=== PATIENT | female | born 1990 | race Caucasian/White ===

== ENCOUNTER 2018-10-30 12:22 | Emergency (ER) | payer OTHER ==
[~2018-10-30] VITALS: Ht 165.1 cm; Wt 60.8 kg
[2018-10-30 12:22] VITALS: BP 124/70
[2018-10-30] MEDS ORDERED: HYDROcodone/APAP 5/325MG 1 TAB TABLET PO ONE (13:00)
[2018-10-30] MEDS ORDERED: CEPH-264 PO (13:03)
[2018-10-30] MEDS ORDERED: HYDR-3165 PO (13:03)
--- NOTE | 2018-10-30 13:03 | PHYS DOC ---
Adult General Chief Complaint Chief Complaint: THUMB HPI HPI 28-year-old female presents with left thumb laceration. The patient was trying to pry apart 2 pieces of meat with a knife when it slipped and it cut down through the finger nail into her thumb on the left hand. The patient had immediate bleeding and pain. The bleeding has stopped. 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 Her tetanus is not up-to-date. She denies any other injuries or complaints. Review of Systems Review of Systems Constitutional: Denies fever or chills [] Eyes: Denies change in visual acuity, redness, or eye pain [] HENT: Denies nasal congestion or sore throat [] Respiratory: Denies cough or shortness of breath [] Cardiovascular: No additional information not addressed in HPI [] GI: Denies abdominal pain, nausea, vomiting, bloody stools or diarrhea [] : Denies dysuria or hematuria [] Musculoskeletal: Denies back pain or joint pain [] Integument: Laceration left thumb[] Neurologic: Denies headache, focal weakness or sensory changes [] Endocrine: Denies polyuria or polydipsia [] All other systems were reviewed and found to be within normal limits, except as documented in this note. Current Medications Current Medications Current Medications Medications (Trade) Dose Ordered Sig/Henri Start Time Stop Time Status Last Admin Dose Admin Acetaminophen/ Hydrocodone Bitart (Lortab 5/325) 1 tab 1X ONCE 10/30/18 13:00 10/30/18 13:01 UNV Physical Exam Physical Exam Constitutional: Well developed, well nourished, no acute distress, non-toxic appearance. [] HENT: Normocephalic, atraumatic, bilateral external ears normal, oropharynx moist, no oral exudates, nose normal. [] Eyes: PERRLA, EOMI, conjunctiva normal, no discharge. [] Neck: Normal range of motion, no tenderness, supple, no stridor. [] Cardiovascular:Heart rate regular rhythm, no murmur [] Lungs & Thorax: Bilateral breath sounds clear to auscultation [] Abdomen: Bowel sounds normal, soft, no tenderness, no masses, no pulsatile masses. [] Skin: The 2.5 cm laceration through the fingernail of the left thumb. Bleading controlled, Skin margins well approximated.[] Back: No tenderness, no CVA tenderness. [] Extremities: No tenderness, no cyanosis, no clubbing, ROM intact, no edema. [] Neurologic: Alert and oriented X 3, normal motor function, normal sensory function, no focal deficits noted. [] Psychologic: Affect normal, judgement normal, mood normal. [] EKG EKG [] Radiology/Procedures Radiology/Procedures [] Course & Med Decision Making Course & Med Decision Making Pertinent Labs and Imaging studies reviewed. (See chart for details) Given the way this laceration looks, I do not believe a repair of this laceration is necessary. The skin margins are well approximated. The hematoma forms, there is already inability for drainage through the nail. Except for the laceration, there is no other injury to the nail. I will give her a Alpine 5/325 in the ED as well as a tetanus shot. I will discharge her with 10 Alpine 5/325 for home. Given the difficulty for quality irrigation, I will also put her on prophylactic Keflex. [] Dragon Disclaimer Dragon Disclaimer This electronic medical record was generated, in whole or in part, using a voice recognition dictation system. Departure Departure: Impression: Primary Impression: Laceration of left thumb with damage to nail Disposition: HOME, SELF-CARE Condition: STABLE Referrals: MIL WHITTEN MD (PCP) Patient Instructions: Fingertip Laceration, Nail Bed Injury, [id number]-Biry Scripts Cephalexin (KEFLEX) 500 Mg Capsule 1 CAP PO BID for infection, #14 CAP Prov: SANYA COLON DO 10/30/18 Hydrocodone Bit/Acetaminophen (NORCO 5-325 TABLET) 1 Each Tablet 1 TAB PO PRN Q6HRS PRN for PAIN, #10 TAB 0 Refills Prov: SANYA COLON DO 10/30/18 Problem Qualifiers Primary Impression: Laceration of left thumb with damage to nail Encounter type: initial encounter Foreign body presence: without foreign body Qualified Codes: S61.112A - Laceration without foreign body of left thumb with damage to nail, initial encounter SANYA COLON DO Oct 30, 2018 13:03
[2018-10-30] MEDS ORDERED: DIPHTH,PERTUSS(ACELL),TET TOX 0.5 ML DISP.SYRIN. VAX IM ONE (13:15)
== END 2018-10-30 13:19 | disposition home or self-care (01) ==
LOC: ER 12:22
DX: S61.012A Laceration without foreign body of left thumb without damage to nail, initial encounter (principal); W26.0XXA Contact with knife, initial encounter; Y93.89 Activity, other specified; Y92.89 Other specified places as the place of occurrence of the external cause; Y99.8 Other external cause status
CPT/HCPCS: 90471; 90715; 99283

== ENCOUNTER → 2019-04-06 | Outpatient (CLI) | payer OTHER ==
[~2019-04-06] MED LIST: CEPH-264 PO; HYDR-3165 PO
--- NOTE | 2019-04-06 10:12 | RAD ---
EXAM: Pelvic sonogram. HISTORY: Pelvic pain. TECHNIQUE: Transabdominal and transvaginal sonographic imaging of the pelvis was performed. COMPARISON: None. FINDINGS: The uterus measures 8.5 x 5.5 x 3.9 cm. The endometrial stripe measures 3.7 mm. There is a small amount of fluid within the endocervical canal. The ovaries are normal in size and demonstrate normal blood flow. There is a 1.8 cm suspected complex left ovarian cyst, possibly hemorrhagic in etiology. There are small bilateral ovarian follicles. There is a small amount of simple free fluid within the right adnexa. IMPRESSION: 1. 1.8 cm complex left ovarian cyst, possibly hemorrhagic in etiology. 2. Small amount of nonspecific fluid within the endocervical canal. 3. Small amount of right adnexal free fluid. 4. Note is made that the previously described mass along the posterior aspect of the uterus on the sonogram dated 08/09/[address] dated 08/12/2018 demonstrates no correlate on the current exam. This may be due to differences in technique. Electronically signed by: Catalina Finney MD (04/06/2019 10:09 AM) [facility]
== END | disposition home or self-care (01) ==
LOC: US 08:59
PROVIDERS: ATTEND Physician Assistant Medical
DX: N83.292 Other ovarian cyst, left side (principal)
CPT/HCPCS: 76830; 76856

== ENCOUNTER → 2019-08-09 | Outpatient (CLI) | payer BC ==
[2019-08-09 16:51] LABS: BASO % 0 % (0-3); EOS % 0 % (0-3); HEMATOCRIT 42.1 % (36.0-47.0); HEMOGLOBIN 14.2 g/dL (12.0-15.5); LYMPH # 2.4 x10^3/uL (1.0-4.8); LYMPH % 21 % (24-48); MEAN CORPUSCULAR HEMOGLOBIN 33 pg (25-35); MEAN CORPUSCULAR HGB CONC 34 g/dL (31-37); MEAN CORPUSCULAR VOLUME 96 fL (79-100); MONO # 0.7 x10^3/uL (0.0-1.1); MONO % 6 % (0-9); NEUT # 8.2 x10^3uL (1.8-7.7); NEUT % 72 % (31-73); PLATELET COUNT 330 x10^3/uL (140-400); RED BLOOD COUNT 4.36 x10^6/uL (3.50-5.40); RED CELL DISTRIBUTION WIDTH 12.6 % (11.5-14.5); WHITE BLOOD COUNT 11.3 x10^3/uL (4.0-11.0)
[2019-08-10 18:07] LABS: RUBELLA IGG ANTIBODY 4.01 index (Immune >0.99)
== END | disposition home or self-care (01) ==
LOC: LAB 15:05
PROVIDERS: ATTEND Obstetrics & Gynecology
DX: Z33.1 Pregnant state, incidental (principal)
CPT/HCPCS: 36415; 84443; 84702; 85025; 86592; 86703; 86762; 86787; 86803; 86850; 86900; 86901; 87340

== ENCOUNTER → 2019-08-18 | Outpatient (CLI) | payer BC ==
--- NOTE | 2019-08-18 11:18 | RAD ---
EXAM: Obstetrics sonogram. HISTORY: Uncertain dates. TECHNIQUE: Sonographic imaging of the gravid uterus was performed. COMPARISON: None. FINDINGS: The uterus measures 7.4 x 5.9 x 5.7 cm. There is a single intrauterine gestational sac with yolk sac and pole. The crown-rump length is 4 mm, corresponding with a gestational age of 6 weeks and 0 days. There is cardiac activity with a heart rate of 101 bpm. The right ovary is not seen. The left ovary is normal in size and contains a 2.0 cm involuting cyst and 1.9 cm simple cyst. There is normal blood flow within the left ovary. IMPRESSION: 1. Single intrauterine fetus with an estimated gestational age based on crown-rump length measurement of 6 weeks and 0 days and early cardiac activity. 2. 2.0 cm involuting left ovarian cyst and 1.9 cm simple left ovarian cyst. 3. Obscured right ovary. Electronically signed by: Catalina Finney MD (08/18/2019 11:15 AM) [facility] [place]
== END | disposition home or self-care (01) ==
LOC: US 10:30
PROVIDERS: ATTEND Obstetrics & Gynecology
DX: Z34.01 Encounter for supervision of normal first pregnancy, first trimester (principal); N83.292 Other ovarian cyst, left side; Z3A.01 Less than 8 weeks gestation of pregnancy
CPT/HCPCS: 76801

== ENCOUNTER → 2019-11-09 | Outpatient (CLI) | payer BC ==
--- NOTE | 2019-11-09 12:17 | RAD ---
INDICATION: Right leg swelling COMPARISON: None. TECHNIQUE: Grayscale, color and doppler ultrasound images were obtained of the right lower extremity venous vasculature. RIGHT: No thrombus identified in the common femoral vein, femoral vein, popliteal vein or visualized calf veins. IMPRESSION: * No thrombus identified in deep venous system of right lower extremity. Electronically signed by: Dash Hernandez MD (11/09/2019 12:14 PM) [id number]
== END ==
LOC: US 11:46
PROVIDERS: ATTEND Obstetrics & Gynecology
DX: M79.89 Other specified soft tissue disorders (principal); R60.9 Edema, unspecified
CPT/HCPCS: 93971

== ENCOUNTER → 2019-11-30 | Outpatient (CLI) | payer OTHER ==
--- NOTE | 2019-11-30 08:59 | RAD ---
Study: US PREG MORE THAN OR EQ TO 14 WKS Clinical Indication: Second trimester survey. Comparison: 08/18/2019 Technique: Multiple grayscale images, color Doppler, and M-mode images of the uterus are obtained. Findings: Single intrauterine gestation in breech presentation. The placenta is posterior in location without evidence of placenta previa. The amount of amniotic fluid appears appropriate. Amniotic fluid index is 15.1 cm. Cervical length is 3 cm. Biometrical data: BPD = 5.0 cm for 21 weeks 0 days. HC = 18.4 cm for 20 weeks 6 days. AC = 16.8 cm for 21 weeks 6 days. FL = 3.3 cm for 20 weeks 3 days. CI ratio = 81.1. HC/AC ratio = 1.10. FL/HC ratio = 18.1. FL/AC ratio = 19.9. Overall, the estimated sonographic gestational age is 21 weeks 0 days for an estimated date of delivery of 03/15/2020. The estimated date of delivery provided by the last menstrual period is 04/12/2020. Estimated weight is 403 grams. A 4 chamber heart is identified with positive cardiac activity. heart rate is 143 beats per minute. Bilateral upper and lower extremities are identified. There is a three-vessel cord with cord insertion visualized. stomach and urinary bladder are identified. Both kidneys are seen. The brain is unremarkable. The spine was difficult to evaluate due to positioning. No gross anatomic abnormalities are identified. Female gender. Impression: 1. Single live intrauterine gestation with estimated sonographic gestational age of 21 weeks 0 days corresponding to an estimated delivery date of 04/11/2020. Estimated delivery date by last menstrual period of04/12/2020. weight estimate of 403 g. 2. Breech presentation at this time. Posterior placenta without previa. Within normal limits amniotic fluid index.] Cervix measuring 3 cm. 3. No anatomic abnormality is identified noting hindered evaluation of the spinal column due to position. Electronically signed by: ABRAM EMERY MD (11/30/2019 8:56 AM) [id number]
== END ==
LOC: US 07:50
PROVIDERS: ATTEND Obstetrics & Gynecology
DX: O32.1XX0 Maternal care for breech presentation, not applicable or unspecified (principal); Z3A.21 21 weeks gestation of pregnancy
CPT/HCPCS: 76805

== ENCOUNTER → 2020-01-13 | Outpatient (CLI) | payer OTHER | LOC: LAB 07:40 | PROVIDERS: ATTEND Obstetrics & Gynecology | DX: Z34.92 Encounter for supervision of normal pregnancy, unspecified, second trimester (principal); Z3A.00 Weeks of gestation of pregnancy not specified | CPT/HCPCS: 36415; 82950 ==

== ENCOUNTER → 2020-02-24 | Outpatient (CLI) | payer OTHER ==
--- NOTE | 2020-02-25 08:02 | RAD ---
Obstetric ultrasound limited: Reason for examination: Size of fetus inconsistent with dates in third trimester. Comparison is made to previous study dated 11/30/2019. Cervix length is normal at 3.8 cm. Fetus appears to be in cephalic presentation. Cardiac activity is seen in the 4 chamber heart with cardiac rate of 139 bpm. Stomach, kidneys and bladder are visualized. There is a three-vessel umbilical cord. The placenta is posterior fundal in location with no previa or abruption adequate amniotic fluid appears be present with the amniotic fluid index of 12.7 cm. Biparietal diameter is 8.27 cm corresponding to gestational age of 33 weeks 2 days. Head circumference is 28.74 corresponding to gestational age of 31 weeks 4 days. Abdominal circumference is 29.16 cm corresponding to gestational age of 31 weeks 1 days. Femur length is 6.39 centimeters corresponding to gestational age of 33 weeks 0 days. Estimated weight is 2091 g. Cephalic index is 88.6. Head circumference to abdominal circumference ratio is 0.99. Femur length to biparietal diameter ratio 77.4. Femur length to head circumference ratio is 22.3. Femur length to abdominal circumference ratio is 21.9. Mean gestational age by ultrasound is 33 weeks 5 days with estimated date of confinement of 04/15/2020. Age by clinical dates is 33 weeks 1 day with estimated date of confinement of 04/12/2020. This corresponds adequately. IMPRESSION: Single viable intrauterine gestation with mean gestational age estimated at 33 weeks 5 days with an estimated date of confinement of 04/15/2020. No gross abnormality seen. Electronically signed by: Paula Mena MD (02/25/2020 7:59 AM) [id number]
== END | disposition home or self-care (01) ==
LOC: US 10:41
PROVIDERS: ATTEND Obstetrics & Gynecology
DX: O26.843 Uterine size-date discrepancy, third trimester (principal); Z3A.33 33 weeks gestation of pregnancy
CPT/HCPCS: 76815

== ENCOUNTER → 2020-07-24 | Outpatient (CLI) | payer OTHER | LOC: LAB 11:19 | PROVIDERS: ATTEND Internal Medicine Cardiovascular Disease | DX: R05 Cough (principal); R19.7 Diarrhea, unspecified; R09.81 Nasal congestion; J02.9 Acute pharyngitis, unspecified; R68.89 Other general symptoms and signs; Z20.828 Contact with and (suspected) exposure to other viral communicable diseases | CPT/HCPCS: U0003 ==

== ENCOUNTER → 2021-09-11 | Outpatient (CLI) | payer OTHER ==
[2021-09-11 08:17] LABS: BASO % 1 % (0-3); EOS # 0.1 x10^3/uL (0.0-0.7); EOS % 1 % (0-3); HEMATOCRIT 42.7 % (36.0-47.0); HEMOGLOBIN 14.5 g/dL (12.0-15.5); LYMPH % 25 % (24-48); MEAN CORPUSCULAR HEMOGLOBIN 33 pg (25-35); MEAN CORPUSCULAR HGB CONC 34 g/dL (31-37); MEAN CORPUSCULAR VOLUME 97 fL (79-100); MONO # 0.6 x10^3/uL (0.0-1.1); MONO % 7 % (0-9); NEUT # 5.1 x10^3uL (1.8-7.7); NEUT % 66 % (31-73); PLATELET COUNT 263 x10^3/uL (140-400); RED BLOOD COUNT 4.39 x10^6/uL (3.50-5.40); RED CELL DISTRIBUTION WIDTH 12.8 % (11.5-14.5); WHITE BLOOD COUNT 7.7 x10^3/uL (4.0-11.0)
[2021-09-11 08:26] LABS: BACTERIA,URINE FEW /HPF (0-FEW); CLARITY,URINE HAZY; COLOR,URINE YELLOW; GLUCOSE,URINE NEG (NEG); NITRITE,URINE NEG (NEG); RBC,URINE OCC /HPF (0-2); SQUAMOUS EPITHELIAL CELL,UR MANY /LPF; UROBILINOGEN,URINE 0.2 mg/dL (0.2 mg/dL); WBC,URINE OCC /HPF (0-4)
[2021-09-11 08:27] LABS: ALBUMIN 3.9 g/dL (3.4-5.0); ALBUMIN/GLOBULIN RATIO 1.3 (1.0-1.7); CALCIUM 8.8 mg/dL (8.5-10.1); CREATININE 0.6 mg/dL (0.6-1.0); GFR 117.4; POTASSIUM 4.1 mmol/L (3.5-5.1); TOTAL BILIRUBIN 0.4 mg/dL (0.2-1.0)
--- NOTE | 2021-09-11 10:56 | RAD ---
CT ABDOMEN+PELVIS WO History: Right lower quadrant pain for 3-4 days. Comparison: None. Technique: CT of the abdomen and pelvis without contrast. Findings: The lung bases are clear. The liver, gallbladder, pancreas, spleen, adrenal glands, and kidneys are u nremarkable. The stomach and small bowel are within normal limits. Normal appendix. No colonic wall thickening or pericolonic inflammatory changes. The bladder is decompressed retroflexed uterus without significant abnormality. No adnexal masses. No free intraperitoneal air or fluid. No adenopathy. Vasculature is within normal limits. Soft tissues are unremarkable. There is mild degenerative changes at L5-S1 and unilateral right L5 pa rs interarticularis defect. Impression: 1. No acute findings in the abdomen and pelvis. Normal appendix. ------ Exposure: One or more of the following individualized dose reduction techniques were utilized for thi s examination: 1. Automated exposure control 2. Adjustment of the mA and/or kV according to patient size 3. Use of iterative reconstruction technique. Electronically signed by: Benito Lambert MD (09/11/2021 10:54 AM) [id number]
== END ==
LOC: CT 07:31
PROVIDERS: ATTEND Physician Assistant Medical
DX: R10.31 Right lower quadrant pain (principal); M47.817 Spondylosis without myelopathy or radiculopathy, lumbosacral region
CPT/HCPCS: 36415; 74176; 80053; 81001; 85025

== ENCOUNTER 2021-09-16 18:25 | Emergency (ER) | payer OTHER ==
[~2021-09-16] VITALS: Ht 160 cm; Wt 63.8 kg
--- NOTE | 2021-09-16 19:11 | PHYS DOC ---
Past History Past Medical History: No Pertinent History Past Surgical History: Other Additional Past Surgical Histo: R ACL RECONSTRUCTIONS; POLYPS FROM UTERIUS Alcohol Use: Occasionally Drug Use: None General Adult EDM: Chief Complaint: FLANK PAIN HPI: HPI: Patient is a 31-year-old female that presents today with right upper quadrant abdominal pain. Patient states for the last 10 days she has had increased abdominal pain on the right side, also nausea with loose stools as well, she states she saw her primary care physician last week and a CT scan was done on September 10, 2021 that did not show any acute findings at the time. Patient returns today because her pain has worsened and is now radiating to her right shoulder, she also is having severe nausea with no vomiting and heartburn. Review of Systems: Review of Systems: Constitutional: Denies fever or chills Eyes: Denies change in visual acuity HENT: Denies nasal congestion or sore throat Respiratory: Denies cough or shortness of breath Cardiovascular: Denies chest pain or edema GI: Abdominal pain nausea and heartburn and loose stools denies vomiting, bloody stools : Denies dysuria Musculoskeletal: Denies back pain or joint pain Integument: Denies rash Neurologic: Denies headache, focal weakness or sensory changes Endocrine: Denies polyuria or polydipsia Lymphatic: Denies swollen glands Psychiatric: Denies depression or anxiety Allergies: Allergies: Allergies Coded Allergies Type Severity Reaction Last Updated Verified amoxicillin Allergy Unknown 09/16/21 Yes Physical Exam: PE: Constitutional: Well developed, well nourished, mild distress, non-toxic appearance. [] HENT: Normocephalic, atraumatic, bilateral external ears normal, oropharynx moist, no oral exudates, nose normal. [] Eyes: PERRLA, EOMI, conjunctiva normal, no discharge. [] Neck: Normal range of motion, no tenderness, supple, no stridor. [] Cardiovascular:Heart rate regular rhythm, no murmur [] Lungs & Thorax: Bilateral breath sounds clear to auscultation [] Abdomen: Inspection of palpation of the abdomen shows no masses or no hernia noted, tenderness noted with palpation in the right upper quadrant, bowel sounds were hyperactive. [] Skin: Warm, dry, no erythema, no rash. [] Back: No tenderness, no CVA tenderness. [] Extremities: No tenderness, no cyanosis, no clubbing, ROM intact, no edema. [] Neurologic: Alert and oriented X 3, normal motor function, normal sensory function, no focal deficits noted. [] Psychologic: Affect normal, judgement normal, mood normal. [] Current Patient Data: Labs: Laboratory Tests Test 09/16/21 18:55 09/16/21 19:03 09/16/21 19:36 Urine Collection Type Void Urine Color Yellow Urine Clarity Clear Urine pH 6.5 Urine Specific [place] 1.010 Urine Protein Neg Urine Glucose (UA) Neg mg/dL Urine Ketones (Stick) Neg mg/dL Urine Blood Neg Urine Nitrite Neg Urine Bilirubin Neg Urine Urobilinogen Dipstick 0.2 mg/dL Urine Leukocyte Esterase Neg Urine RBC Occ /HPF Urine WBC Occ /HPF Urine Squamous Epithelial Cells Few /LPF Urine Bacteria Few /HPF Bedside Urine HCG, Qualitative hcg negative White Blood Count 10.8 x10^3/uL Red Blood Count 4.19 x10^6/uL Hemoglobin 13.9 g/dL Hematocrit 39.9 % Mean Corpuscular Volume 95 fL Mean Corpuscular Hemoglobin 33 pg Mean Corpuscular Hemoglobin Concent 35 g/dL Red Cell Distribution Width 12.2 % Platelet Count 257 x10^3/uL Neutrophils (%) (Auto) 74 % Lymphocytes (%) (Auto) 20 % Monocytes (%) (Auto) 6 % Eosinophils (%) (Auto) 0 % Basophils (%) (Auto) 0 % Neutrophils # (Auto) 8.0 x10^3uL Lymphocytes # (Auto) 2.2 x10^3/uL Monocytes # (Auto) 0.6 x10^3/uL Eosinophils # (Auto) 0.0 x10^3/uL Basophils # (Auto) 0.0 x10^3/uL Sodium Level 139 mmol/L Potassium Level 4.3 mmol/L Chloride Level 103 mmol/L Carbon Dioxide Level 27 mmol/L Anion Gap 9 Blood Urea Nitrogen 9 mg/dL Creatinine 0.7 mg/dL Estimated GFR (Cockcroft-Gault) 98.3 BUN/Creatinine Ratio 13 Glucose Level 94 mg/dL Calcium Level 9.0 mg/dL Total Bilirubin 0.4 mg/dL Aspartate Amino Transf (AST/SGOT) 14 U/L Alanine Aminotransferase (ALT/SGPT) 22 U/L Alkaline Phosphatase 38 U/L Total Protein 7.0 g/dL Albumin 4.1 g/dL Albumin/Globulin Ratio 1.4 Lipase 41 U/L Current Medications Medications (Trade) Dose Ordered Sig/Henri Route PRN Reason Start Time Stop Time Status Last Admin Dose Admin Sodium Chloride 1,000 ml @ 1,000 mls/hr 1X ONCE IV 09/16/21 19:15 09/16/21 20:14 DC 09/16/21 19:40 Fentanyl Citrate (Fentanyl 2ml Vial) 50 mcg 1X ONCE IVP 09/16/21 19:15 09/16/21 19:16 DC 09/16/21 19:41 Ondansetron HCl (Zofran) 4 mg 1X ONCE IVP 09/16/21 19:15 09/16/21 19:16 DC 09/16/21 19:41 Vital Signs Date Time Temp Pulse Resp B/P (MAP) Pulse Ox O2 Delivery O2 Flow Rate FiO2 09/16/21 20:30 72 18 131/83 (99) 100 Room Air 09/16/21 20:06 18 100 Room Air 09/16/21 20:00 72 18 126/85 (99) 99 Room Air 09/16/21 19:41 18 100 09/16/21 19:30 68 18 111/76 (88) 99 Room Air 09/16/21 18:35 98.1 83 18 138/86 (103) 99 Room Air Laboratory Tests Test 09/16/21 19:03 POC Urine HCG, Qualitative hcg negative (Negative) Vital Signs: Vital Signs Date Time Temp Pulse Resp B/P (MAP) Pulse Ox O2 Delivery O2 Flow Rate FiO2 09/16/21 18:35 98.1 83 18 138/86 (103) 99 Room Air EKG: EKG: [] Radiology/Procedures: Radiology/Procedures: REASON: RUQ abdominal pain PROCEDURE: ABDOMEN OR LWR BACK LTD INDICATION: Reason: RUQ abdominal pain / Spl. Instructions: / History: COMPARISON: CT September 11, 2021 TECHNIQUE: Grayscale and color ultrasound images obtained through the abdomen. FINDINGS: Pancreas: Limited visualization secondary to overlying structures obscuring Liver: Borderline echogenic. Gallbladder: No definite stones or wall thickening. Common Bile Duct: Not dilated. Right Kidney: No hydronephrosis. Aorta/IVC: Somewhat limited evaluation secondary to overlying structures obscuring. IMPRESSION: * No definite gallstones or common bile duct dilation. Electronically signed by: Dash Hernandez MD (09/16/2021 9:28 PM) [id number][] Heart Score: C/O Chest Pain: No Risk Factors: Risk Factors: DM, Current or recent (<one month) smoker, HTN, HLP, family history of CAD, obesity. Risk Scores: Score 0 - 3: 2.5% MACE over next 6 weeks - Discharge Home Score 4 - 6: 20.3% MACE over next 6 weeks - Admit for Clinical Observation Score 7 - 10: 72.7% MACE over next 6 weeks - Early Invasive Strategies Course & Med Decision Making: Course & Med Decision Making Pertinent Labs and Imaging studies reviewed. (See chart for details) [id number] Heaton regarding this case, he recommended a CT scan with p.o. and IV contrast due to the fact that the noncontrasted CT and ultrasound were negative for any acute findings and the patient continues to have right upper quadrant pain. Patient was informed of the decision to move forward with a contrasted CT, and she is agreeable with the plan of care. 1726 reviewed radiological and laboratory results with patient did inform her there is no acute findings on her results today, she will need to follow-up with her primary care physician for further evaluation of this abdominal pain with possible GI consult or other test. Patient will be given home doses of Zofran and Ultram while here in the emergency department will need to follow-up with her primary care for further medications at this time. Patient is agreeable with the plan of care. Dragon Disclaimer: Dragon Disclaimer: This electronic medical record was generated, in whole or in part, using a voice recognition dictation system. Departure Departure: Impression: Primary Impression: Abdominal pain Qualified Codes: R10.11 - Right upper quadrant pain Disposition: HOME / SELF CARE / HOMELESS Condition: STABLE Referrals: TI GEORGE (PCP) Patient Instructions: Abdominal Pain Additional Instructions: Ultram take 1 tablet every 6 hours as needed for moderate to severe pain [id number] Tylenol and/or ibuprofen as needed for mild to moderate pain Zofran take 1 tablet every 6-8 hours as needed for nausea, use with caution may cause constipation Follow-up with your primary care physician in the a.m. for further evaluation of your abdominal pain. DAYANA HILL APRN Sep 16, 2021 19:11
[2021-09-16] MEDS ORDERED: IV NORMAL SALINE 1,000ML 1,000 ML IV ONE (19:15)
[2021-09-16] MEDS ORDERED: ONDANSETRON PF 4 MG/2 ML VIAL. IVP ONE (19:15)
[2021-09-16 19:29] LABS: CLARITY,URINE CLEAR; COLOR,URINE YELLOW; GLUCOSE,URINE NEG (NEG)
[2021-09-16 19:30] LABS: BACTERIA,URINE FEW /HPF (0-FEW); NITRITE,URINE NEG (NEG); RBC,URINE OCC /HPF (0-2); SQUAMOUS EPITHELIAL CELL,UR FEW /LPF; UROBILINOGEN,URINE 0.2 mg/dL (0.2 mg/dL); WBC,URINE OCC /HPF (0-4)
[2021-09-16 19:55] LABS: BASO % 0 % (0-3); EOS % 0 % (0-3); HEMATOCRIT 39.9 % (36.0-47.0); HEMOGLOBIN 13.9 g/dL (12.0-15.5); LYMPH # 2.2 x10^3/uL (1.0-4.8); LYMPH % 20 % (24-48); MEAN CORPUSCULAR HEMOGLOBIN 33 pg (25-35); MEAN CORPUSCULAR HGB CONC 35 g/dL (31-37); MEAN CORPUSCULAR VOLUME 95 fL (79-100); MONO # 0.6 x10^3/uL (0.0-1.1); MONO % 6 % (0-9); NEUT % 74 % (31-73); PLATELET COUNT 257 x10^3/uL (140-400); RED BLOOD COUNT 4.19 x10^6/uL (3.50-5.40); RED CELL DISTRIBUTION WIDTH 12.2 % (11.5-14.5); WHITE BLOOD COUNT 10.8 x10^3/uL (4.0-11.0)
[2021-09-16 20:01] LABS: CREATININE 0.7 mg/dL (0.6-1.0); GFR 98.3; POTASSIUM 4.3 mmol/L (3.5-5.1)
[2021-09-16 20:08] LABS: ALBUMIN 4.1 g/dL (3.4-5.0); ALBUMIN/GLOBULIN RATIO 1.4 (1.0-1.7); TOTAL BILIRUBIN 0.4 mg/dL (0.2-1.0)
--- NOTE | 2021-09-16 21:30 | RAD ---
INDICATION: Reason: RUQ abdominal pain / Spl. Instructions: / History: COMPARISON: CT September 11, 2021 TECHNIQUE: Grayscale and color ultrasound images obtained through the abdomen. FINDINGS: Pancreas: Limited visualization secondary to overlying structures obscuring Liver: Borderline echogenic. Gallbladder: No definite stones or wall thickening. Common Bile Duct: Not dilated. Right Kidney: No hydronephrosis. Aorta/IVC: Somewhat limited evaluation secondary to overlying structures obscuring. IMPRESSION: * No definite gallstones or common bile duct dilation. Electronically signed by: Dash Hernandez MD (09/16/2021 9:28 PM) [id number]
[2021-09-16] MEDS ORDERED: IOHEXOL 240 MG/ML 50ML VIAL. PO ONE (22:15)
[2021-09-16] MEDS ORDERED: IOHEXOL 300 MG/ML 75 ML VIAL. IV ONE (22:15)
[2021-09-16] MEDS ORDERED: METOCLOPRAMIDE HCL 10 MG/2 ML VIAL. IVP ONE (23:30)
[2021-09-16] MEDS ORDERED: KETOROLAC 30 MG/ML VIAL. IVP ONE (23:30)
--- NOTE | 2021-09-16 23:54 | RAD ---
CT ABDOMEN+PELVIS W History: Reason: RUQ abdominal pain / Spl. Instructions: / History: Technique: After the administration of intravenous contrast, CT imaging was performed of the abdomen and pelvis. Multiplanar images are reviewed. Exposure: One or more of the following individualized dose reduction techniques were utilized for thi s examination: 1. Automated exposure control 2. Adjustment of the mA and/or kV according to patient size 3. Use of iterative reconstruction technique. Comparison: September 11, 2021 Findings: Lower chest: No consolidation or pleural effusion. Abdomen and pelvis: The liver, spleen, adrenal glands, pancreas and gallbladder are unremarkable. No renal calculus. No biliary ductal dilatation. No hydronephrosis. Distended urinary bladder. Small pelvic free fluid, likely physiologic. Normal appendix. No evidence of bowel obstruction. Oral contrast passes to the level of the cecum. No pathologic lymphadenopathy. Involuting right ovarian fo llicle measures 1.5 cm. Bones: Grade 1 anterolisthesis L5 on S1 with unilateral right L5 pars defect. Impression: 1. No acute abdominal or pelvic pathology. 2. Distended urinary bladder. Electronically signed by: Pollo Jo DO (09/16/2021 11:52 PM) [facility]
[2021-09-17] MEDS ORDERED: START PACK - traMADol 1 STARTPACK TABLET PO ONE
[2021-09-17] MEDS ORDERED: ONDANSETRON 4MG ODT 4TABLET STARTPACK. PO ONE
[2021-09-17 00:30] VITALS: BP 113/68
== END 2021-09-17 00:35 | disposition home or self-care (01) ==
LOC: ER 18:25
DX: R10.11 Right upper quadrant pain (principal); R19.7 Diarrhea, unspecified; R11.0 Nausea; Z88.1 Allergy status to other antibiotic agents
CPT/HCPCS: 36415; 74177; 76705; 80053; 81001; 81025; 83690; 85025; 96361; 96374; 96375; 99285; J1885; J2405; J2765; J3010; J7030; Q0162

== ENCOUNTER → 2021-09-20 | Outpatient (CLI) | payer OTHER ==
[2021-09-17 00:30] VITALS: BP 113/68
--- NOTE | 2021-09-20 12:29 | RAD ---
HEPATOBILIARY SCAN WITH EJECTION FRACTION History: Reason: ABDOMINAL PAIN / Spl. Instructions: / History: Right upper quadrant x2 weeks. Comparison: Limited Abdominal ultrasound 09/16/2021. Procedure: Serial static images are obtained of the liver and biliary system in the frontal projectio n following IV administration of 5.3 mCi of Technetium 99m Choletec. After filling of the gallbladd er, less than 2 mcg of sincalide were infused and dynamic imaging continued over this period. The gal lbladder ejection fraction was calculated. Findings: There is prompt hepatic clearance of tracer from the blood pool. There is homogeneous distribution th roughout the liver. There is normal filling of the gallbladder and normal emptying into the biliary s ystem and small bowel. The gallbladder ejection fraction measures 55% (normal gallbladder EF is 35% o r greater). IMPRESSION: 1. The cystic duct and common bile duct are patent. Negative for acute cholecystitis. 2. The gallbladder ejection fraction is normal. Electronically signed by: Real Castillo MD (09/20/2021 12:26 PM) [id number]
== END ==
LOC: NM 09:28
PROVIDERS: ATTEND Physician Assistant Medical
DX: K76.89 Other specified diseases of liver (principal)
CPT/HCPCS: 78227; A9537